=== PATIENT | female | born 2000 | race Caucasian/White ===

== ENCOUNTER 2022-08-26 08:00 | Outpatient (CLI) | payer OTHER ==
--- NOTE | 2022-08-26 14:37 | XRAY Report ---
PROCEDURE: Nasal Bones INDICATIONS: CONTUSION OF NOSE TECHNIQUE: 3 views of the nasal bones acquired. COMPARISON: None FINDINGS: Bones: No fractures or dislocations. Nasal septum is midline. Normal nasociliary nerve grooves are noted. Soft tissues: No suspicious soft tissue calcifications. IMPRESSION: No visualized acute fracture or dislocation. However, occult injury cannot be excluded. Recommend cris rt interval imaging follow-up in 7-10 days as clinically indicated for additional evaluation. Reviewed by: Hellen Valente MD on 08/26/2022 2:35 PM PDT Approved by: Hellen Valente MD on 08/26/2022 2:35 PM PDT Station ID: [id number]
== END 2022-08-26 23:59 | disposition home or self-care (01) ==
LOC: DI.N 08:00
PROVIDERS: ATTEND Nurse Practitioner
DX: S00.33XA Contusion of nose, initial encounter (principal)